=== PATIENT | male | born 1995 | race Caucasian/White ===

== ENCOUNTER 2017-12-27 15:45 | Emergency (ER) | payer OTHER, BC ==
[2017-12-27 17:00] VITALS: BP 96/61
--- NOTE | 2017-12-27 17:46 | UC ---
Respiratory Complaint HPI - HPI Summary HPI Summary: Sore throat and dry cough for a week, with increasing sinus congestion. - History of Current Complaint Chief Complaint: UCRespiratory Stated Complaint: COUGH,CONGESTION,ST Time Seen by Provider: 12/27/17 17:37 Hx Obtained From: Patient Onset/Duration: Gradual Onset, Lasting Days Timing: Intermittent Episodes Severity Initially: Mild Severity Currently: Moderate Pain Intensity: 4 Character: Cough: Productive Aggravating Factors: Allergens - hx of cat allergy, room mate just got a cat but confined within the bedroom Alleviating Factors: OTC Meds Associated Signs And Symptoms: Positive: Nasal Congestion, Sinus Discomfort - Risk Factors Pulmonary Embolism Risk Factors: Negative Cardiac Risk Factors: Negative Pseudomonas Risk Factors: Negative Tuberculosis Risk Factors: Negative - Allergies/Home Medications Allergies/Adverse Reactions: Allergies Allergy/AdvReac Type Severity Reaction Status Date / Time No Known Allergies Allergy Verified 12/27/17 16:55 PMH/Surg Hx/FS Hx/Imm Hx Previously Healthy: Yes - Surgical History Surgical History: None - Family History Known Family History: Positive: Diabetes - GRANDFATHER Negative: Cardiac Disease, Renal Disease, Respiratory Disease, Blood Disorder - Social History Occupation: Student Lives: Dormitory/Roommates Alcohol Use: Occasionally Substance Use Type: None Smoking Status (MU): Never Smoked Tobacco - Immunization History Most Recent Tetanus Shot: UTD Review of Systems Constitutional: Negative Skin: Negative Eyes: Negative ENT: Sore Throat, Nasal Discharge, Sinus Pain/Tenderness - pain for forward bending. Respiratory: Cough - cough with purulent sputum, no shortness of breath. Cardiovascular: Negative Gastrointestinal: Negative Genitourinary: Negative Motor: Negative Neurovascular: Negative Musculoskeletal: Negative Neurological: Negative Psychological: Negative Is Patient Immunocompromised?: No All Other Systems Reviewed And Are Negative: Yes Physical Exam Triage Information Reviewed: Yes Appearance: Ill-Appearing - looks mildly unwell Vital Signs: Initial Vital Signs Temp 98.9 F 12/27/17 16:55 Pulse 69 12/27/17 16:55 Resp 16 12/27/17 16:55 BP 96/61 12/27/17 16:55 Pulse Ox 99 12/27/17 16:55 Eyes: Positive: Conjunctiva Clear ENT: Positive: Pharyngeal erythema, Nasal drainage, TMs normal Neck: Positive: Supple Respiratory: Positive: Lungs clear, Normal breath sounds Cardiovascular: Positive: RRR, No Murmur Abdomen Description: Positive: Nontender, No Organomegaly, Soft Musculoskeletal Exam: Normal Neurological Exam: Normal Psychological Exam: Normal Skin Exam: Normal UC Diagnostic Evaluation - Laboratory O2 Sat by Pulse Oximetry: 99 Respiratory Course/Dx - Course Course Of Treatment: amoxicillin for sinusitis, discussed possible allergies. - Differential Dx/Diagnosis Differential Diagnosis/HQI/PQRI: Asthma, Bronchitis, Sinusitis Provider Diagnoses: acute sinusitis Discharge - Sign-Out/Discharge Documenting (check all that apply): Patient Departure All imaging exams completed and their final reports reviewed: No Studies - Discharge Plan Condition: Stable Disposition: HOME Prescriptions: Amoxicillin PO (*) [Amoxicillin 875 MG (*)] 875 mg PO BID #14 tab Patient Education Materials: Sinusitis (ED) Referrals: No Primary Care Phys,NOPCP [Primary Care Provider] - Additional Instructions: Your symptoms are most consistent with a bacterial sinusitis, and clinically you do not have bronchitis or pneumonia. Please take the full course of antibiotics. This is less likely an allergy given the history of exposure to cats, but you might try tking an antihistamine such as Tanna (fexofenadine) 180mg daily OR Zyrtec (cetirazine) 10mg once daily if the symptoms continue. - Billing Disposition and Condition Condition: STABLE Disposition: Home
== END 2017-12-27 17:57 | disposition home or self-care (01) ==
LOC: UCCORT 15:45
DX: J01.90 Acute sinusitis, unspecified (principal)
CPT/HCPCS: 99212; G0463